=== PATIENT | male | born 1985 | race Caucasian/White ===

== ENCOUNTER 2017-11-24 20:28 | Observation (INO) ==
[2017-11-24 22:23] VITALS: BP 116/73
--- NOTE | 2017-11-25 19:17 | Event Note ---
Date of Encounter: 11/25/17 Time of Encounter: 23:00 Patient transferred from [facility] for evaluation of chest pain. Upon arrival he requested to leave AGAINST MEDICAL ADVICE. I explained to him risks of leaving including , and he agreed to accept these risks. He signed AMA paperwork and left the hospital. I did not have an opportunity to evaluate the patient before he left.
== END 2017-11-24 22:58 | disposition left against medical advice (07) ==
LOC: 3BNU
PROVIDERS: ADMIT Family Medicine; ATTEND Family Medicine